=== PATIENT | male | born 1980 | race Caucasian/White ===

== ENCOUNTER 2024-05-18 20:18 | Emergency (ER) | payer BC, SELFPAY ==
[2024-05-18 20:20] VITALS: BP 135/89
[2024-05-18 20:36] LABS: % Basophils 0.6 % (0-2); % Eosinophils 3.7 % (0-6); % Immature Granulocytes 0.6 % (0-0.5); % Monocytes 15.2 % (1.7-9.3); % Neutrophils 54.9 % (42.2-75.2); Absolute Eosinophils 0.2 10^3/uL (0-0.7); Absolute Lymphocytes 1.6 10^3/uL (1.2-3.4); Absolute Neutrophils 3.5 10^3/uL (1.4-6.5); Hematocrit 43.4 % (39.0-52.0); Hemoglobin 15.6 g/dL (13.0-18.0); Mean Corp Hgb Conc. 35.9 g/dL (33.0-37.0); Mean Corpuscular Hgb 30.5 pg (27.0-31.0); Mean Corpuscular Volume 84.9 fL (80.0-94.0); Mean Platelet Volume 10.9 fL (7.4-10.4); Nucleated Red Blood Cells % 0 % (-); Platelet Count 251 10^3/uL (130-400); Red Blood Cell Count 5.11 10^6/uL (4.70-6.10); Red Cell Dist. Width 11.8 % (11.5-14.5); White Blood Cell Count 6.4 10^3/uL (4.8-10.8)
[2024-05-18 20:50] LABS: ALT (SGPT) 50 U/L (0-50); AST (SGOT) 34 U/L (17-59); Albumin 4.7 g/dl (3.5-5.0); Alkaline Phosphatase 48 U/L (38-126); Blood Urea Nitrogen 18 mg/dl (9-20); Calcium 9.8 mg/dl (8.4-10.2); Carbon Dioxide 24 mmol/L (22-30); Chloride 101 mmol/L (98-107); Glucose 120 mg/dl (70-99); Potassium 4.5 mmol/L (3.5-5.1); Sodium 141 mmol/L (135-145); Total Bilirubin 0.5 mg/dl (0.2-1.3); Total Protein 7.4 g/dl (6.3-8.2); eGFR > 60.00
[2024-05-18 20:51] LABS: Lipase 82 U/L (23-300)
--- NOTE | 2024-05-18 22:33 | ED.GENMED ---
History of Present Illness
<GREG Victoria - Last Filed: 05/18/24 23:50>
General
Chief Complaint: Abdominal Pain
Time Seen by Provider: 05/18/24 22:33
History of Present Illness
History of Present Illness:
Patient is a 43 year old male with a PMH of GERD presenting to the ED with complaints of abdominal pain x 3 days. Patient states the pain has been getting worse with time and currently rates it a 7/10. It is relatively constant and described to be a
tight/bloated feeling. Patient states his RUQ hurts the most, and laying down makes the pain worse. Tyelnol did not alleviate symptoms. The pain does not radiate to the back. He admits to associated chest pain and belching. The chest pain is
described as a burning sensation and states it is similar to a reflux feeling. The belching makes the chest pain worse and he belches spontaneously. Patient also admits mild nausea but has not vomited. His bowel movements have been soft and denies
any blood in the stool. He has had an episode like this a few months ago that was similar but resolved. Patient says he also has came down with a cold recently and feels congested and has a mild headache. He denies any palpitations fever vomiting.
Patient has a PMH of GERD that was diagnosed 6 months ago which he has not taken any medication for yet. He denies any alcohol use but admits to using a vape. Denies any history of gallstones or PUD.
<Tanvir Deluna DO - Last Filed: 05/19/24 02:31>
General
Source: patient
Nursing documentation reviewed up to this point in time: agreed with
Review of Systems
<GREG Victoria - Last Filed: 05/18/24 23:50>
Review of Systems
Constitutional: Reports no symptoms
Cardiac: Reports chest pain (burning reflux chest pain )
ABD/GI: Reports abdominal pain and nausea
: Reports no symptoms
Neurological: Reports headache
<Tanvir Deluna DO - Last Filed: 05/19/24 02:31>
Review of Systems
Allergies reviewed?: Yes
Other source history: family ()
All Other Systems: ROS reviewed and negative except as documented in HPI and ROS
EENT: Reports no symptoms
Respiratory: Reports no symptoms
Musculoskeletal: Reports no symptoms
Skin: Reports no symptoms
Endocrine: Reports no symptoms
Hematologic/Lymphatic: Reports no symptoms
Psychiatric: Reports anxiety
Phy Exam
<GREG Victoria - Last Filed: 05/18/24 23:50>
General Physical Exam
General Presentation: well appearing
General age: appears stated age
General Habitus: normal
General Mental: alert
Cardiovascular Exam
Cardiovascular Exam: regular rate/rhythm, no edema, no gallop, no JVD and no murmur
Pulmonary Exam
Pulmonary Exam: lungs clear, no respiratory distress, no rales, chest non tender, no crackles, no rhonchi, no stridor, no wheezing and no cough
Gastrointestinal Exam
Gastrointestinal Exam: normal bowel sounds, soft, no organomegaly, no pulsatile mass, no cva tenderness, distended and tender
Palpation: left upper quadrant: Minimal tenderness, left lower quadrant: Minimal tenderness, right upper quadrant: Moderate tenderness and right lower quadrant: Mild tenderness
Course
<GREG Victoria - Last Filed: 05/18/24 23:50>
Orders/Labs/Results
Orders:
Orders
05/18/24 20:29
Complete Blood Count/With Diff Urgent
Comprehensive Metabolic Panel Urgent
Lipase Urgent
05/18/24 22:58
Electrocardiogram (*1) Urgent
Reason for Study: Abdominal Pain
EKG- Treatment ONCE
05/18/24 23:09
Pantoprazole [Protonix IV] 40 mg IV NOW STA
05/18/24 23:10
Sucralfate Suspension [Carafate Suspension] 1 gm PO NOW STA
05/18/24 23:26
Troponin I Urgent
05/18/24 23:35
Acetaminophen [Tylenol] 650 mg .ROUTE .STK-MED ONE
05/18/24 23:42
Acetaminophen [Tylenol] 650 mg PO NOW STA
05/19/24 00:00
US Abdomen Complete/Upper Urgent
Reason For Exam: RUQ pain
05/19/24 01:33
Morphine Sulfate 4 mg .ROUTE .STK-MED ONE
05/19/24 01:35
Morphine Sulfate 4 mg IV NOW STA
Abnormal Lab Results
05/18/24
20:29
MPV 10.9 H fL
(7.4-10.4)
Absolute Monos (auto) 1.0 H 10^3/uL
(0.1-0.6)
Immature Gran % 0.6 H %
(0-0.5)
Monocytes % 15.2 H %
(1.7-9.3)
Glucose 120 H mg/dl
(70-99)
05/18/24 20:29
05/18/24 20:29
Vital Signs
Initial and Last Documented VS:
Initial Vital Signs
Temp Pulse Resp BP Pulse Ox
98.9 F 100 16 135/89 98
05/18/24 20:20 05/18/24 20:20 05/18/24 20:20 05/18/24 20:20 05/18/24 20:20
Last Documented Vital Signs
Temp Pulse Resp BP Pulse Ox
98.9 F 83 12 128/89 93
05/18/24 20:20 05/19/24 01:30 05/19/24 01:30 05/19/24 01:25 05/19/24 00:44
<Tanvir Deluna, DO - Last Filed: 05/19/24 02:31>
Orders/Labs/Results
Orders:
Orders
05/18/24 20:29
Complete Blood Count/With Diff Urgent
Comprehensive Metabolic Panel Urgent
Lipase Urgent
05/18/24 22:58
Electrocardiogram (*1) Urgent
Reason for Study: Abdominal Pain
EKG- Treatment ONCE
05/18/24 23:09
Pantoprazole [Protonix IV] 40 mg IV NOW STA
05/18/24 23:10
Sucralfate Suspension [Carafate Suspension] 1 gm PO NOW STA
05/18/24 23:26
Troponin I Urgent
05/18/24 23:35
Acetaminophen [Tylenol] 650 mg .ROUTE .STK-MED ONE
05/18/24 23:42
Acetaminophen [Tylenol] 650 mg PO NOW STA
05/19/24 00:00
US Abdomen Complete/Upper Urgent
Reason For Exam: RUQ pain
05/19/24 01:33
Morphine Sulfate 4 mg .ROUTE .STK-MED ONE
05/19/24 01:35
Morphine Sulfate 4 mg IV NOW STA
Abnormal Lab Results
05/18/24
20:29
MPV 10.9 H fL
(7.4-10.4)
Absolute Monos (auto) 1.0 H 10^3/uL
(0.1-0.6)
Immature Gran % 0.6 H %
(0-0.5)
Monocytes % 15.2 H %
(1.7-9.3)
Glucose 120 H mg/dl
(70-99)
05/18/24 20:29
05/18/24 20:29
Vital Signs
Initial and Last Documented VS:
Initial Vital Signs
Temp Pulse Resp BP Pulse Ox
98.9 F 100 16 135/89 98
05/18/24 20:20 05/18/24 20:20 05/18/24 20:20 05/18/24 20:20 05/18/24 20:20
Last Documented Vital Signs
Temp Pulse Resp BP Pulse Ox
98.9 F 83 12 128/89 93
05/18/24 20:20 05/19/24 01:30 05/19/24 01:30 05/19/24 01:25 05/19/24 00:44
<GREG Victoria - Last Filed: 05/18/24 23:50>
MDM/Problems Addressed
Differential Diagnosis Includes:
GERD exacerbation, PUD, gastritis
MDM/Problems Addressed:
blood work is normal, order ekg give PPI for reflux 1150a update ekg is NSR
<Francisco Dudley [facility] - Last Filed: 05/18/24 23:50>
*Critical Care Note
Total Time (30-74mins, 75-104mins- exclusive of procedures): Not Applicable
<Tanvir Deluna DO - Last Filed: 05/19/24 02:31>
Update Note
Update Note:
Ultrasound abdomen complete
IMPRESSION:
Gallbladder is relatively contracted which somewhat with evaluation
Suspecte gallstones in the region of the gallbladder neck
No appreciable gallbladder wall thickening or pericholecystic fluid
Negative sonographic Mcfadden's sign per report
No bile duct dilation
Diffuse increased hepatic echogenicity, suggesting steatosis
Hypoechoic lesions in the left lobe of liver measuring 2.4 x 1.8 �2.3 cm and 2.9 x 2.4 x 2.5 cm in size
Possibly reflecting areas of fatty sparing
Difficult to exclude hepatic masses(incompletely evaluated with this exam)
Consider outpatient MRI for more definitive characterization
Probable focal fatty sparing near the gallbladder fossa
Bilateral kidneys appear normal and are bilaterally symmetric
Normal sized spleen
No appreciable free fluid
05/19/2024 0226 AM I did discuss lab work, and ultrasound findings with patient. Both patient and had several questions. They will follow-up with their family doctor and GI, especially pertaining to the Hypoechoic lesions in the left lobe of
liver, and the gallstones. Discussed return to ER instructions. Patient to be discharged home.
ED Attending Note
<GREG Victoria - Last Filed: 05/18/24 23:50>
-
Portions of this chart may have been created with voice recognition software.� Occasional wrong word or��sound alike� substitutions may have occurred due to the inherent limitations of voice recognition software.
<Tanvir Deluna DO - Last Filed: 05/19/24 02:31>
ED Attending Note
Patient seen and examined by attending physician: Yes
I performed the substantive portion of visit, reviewed & personally made and approve the management plan that is documented in note by myself or RENETTA.: Yes
ED Attending Note:
Pleasant 43-year-old male presents with abdominal pain that is been present for the last 3 days. He states that the pain is exacerbated when lying flat and mostly alleviated when sitting up. Patient has been diagnosed with GERD approximately 6
months ago but states that he has not been taking his medicines as directed. He had a cardiology visit and was due for further heart testing the patient has not been compliant. Patient took Tylenol but he did not get any relief. Patient reports
belching exacerbates his symptoms. Patient does admit to vaping. Patient was seen in conjunction with the PA student. I have reviewed and agree with the history and treatment plan presented. On my independent physical exam, patient is awake,
alert, and oriented x3, minimal acute distress at time of exam. Heart is regular rate rhythm. Lungs are clear to auscultation bilaterally without wheezes rales or rhonchi abdomen is soft without tenderness to palpation in the right upper quadrant
or right lower quadrant.
Discharge Plan
Departure
Patient Disposition: Home (Routine Discharge)
Date of Disposition: 05/19/24
Time of Disposition: :
Patient with high blood pressure during this ER visit?: Yes
Condition: Good
Discharge Problem:
Abdominal pain, Gallstones, Hypodense mass of left lobe of liver
Instructions: Gallstones (DC), Abdominal Pain, BLOOD PRESSURE
Prescriptions:
New
pantoprazole [Protonix] 40 mg tablet,delayed release (DR/EC)
40 mg PO DAILY Qty: 30 0RF
Referrals:
Damien Chahal MD [Active] -
Avril Winters MD [Active] - Call in 1-3 days for appt
Paddy Alaniz MD [Family Provider] -
Activity Restrictions/Additional Instructions:
Your prescriptions were sent electronically to the pharmacy that you specified.
Please follow-up with GI regarding your reflux and the lesions in the left lobe of liver.
Please follow-up with general surgery regarding your right upper quadrant abdominal pain and gallstones
It was a pleasure meeting you and taking part in your care. We hope for your continued healing and wellness.
Please read discharge instructions in their entirety. However, they are for general education and may not describe your exact diagnosis at discharge. Information on your ER visit and medical conditions were discussed with you along with appropriate
follow up information...
If indicated, please take your medications as instructed and indicated on discharge paperwork.
Please schedule a follow up appointment as directed. Call to schedule an appointment
Please return to the emergency department with ANY change in, persisting, or worsening of symptoms. If any of your symptoms do not improve, or persist, or become more severe within 6-12 hours, please return to the emergency department for further
care.
Please return to the emergency department if you develop a headache, neck pain/stiffness, fever greater than 100.4F, chest pain, shortness of breath, persistent nausea, vomiting, slurred speech, difficulty walking, numbness/tingling, weakness, signs
of infection or any other symptoms that are worrisome to you.
If you have any questions or concerns please do not hesitate to call the Hospital at or E-mail me directly at [email or web address]
Interventions
Interventions:
*Risk Screen - Suicide Last Done: 05/19/24 01:13
*General Assessment Last Done: 05/18/24 20:20
*Neglect/Abuse Screening Last Done: 05/19/24 01:13
ED- Fall Risk Assessment Last Done: 05/19/24 01:13
*ED COVID-19 Vaccine History Last Done: 05/19/24 01:13
GM-Krbdwa-Vvvajcduyo Assessment Last Done: 05/18/24 20:19
Discharge Date and Time
Print Language: FAROESE
[2024-05-18 23:19] VITALS: BP 118/87
[2024-05-18] MEDS: CARAFATE SUSPENSION 1 GM PO (23:33)
[2024-05-18] MEDS: PROTONIX IV 40 MG IV (23:33)
[2024-05-18] MEDS: TYLENOL 650 MG PO (23:42)
[2024-05-19] VITALS: BP 112/83
[2024-05-19] LABS: Troponin I < 0.012 ng/ml
[2024-05-19 01:25] VITALS: BP 128/89
[2024-05-19] MEDS: MORPHINE SULFATE 4 MG IV (01:35)
[2024-05-19 02:00] VITALS: BP 120/81
== END 2024-05-19 02:47 | disposition home or self-care (01) ==
LOC: EMR 20:18
PROVIDERS: Emergency Medicine; EMERGENCY PHYSICIAN Student in an Organized Health Care Education/Training Program; FAMILY PHYSICIAN Family Medicine
DX: K80.20 Calculus of gallbladder without cholecystitis without obstruction (principal); R16.0 Hepatomegaly, not elsewhere classified; R10.9 Unspecified abdominal pain; K21.9 Gastro-esophageal reflux disease without esophagitis; R03.0 Elevated blood-pressure reading, without diagnosis of hypertension
CPT/HCPCS: 99285; 96374; 96375; 76700; 80053; 83690; 84484; 85025; 93005

== ENCOUNTER → 2024-06-28 16:53 | Outpatient (REF) | payer BC, SELFPAY | LOC: MRI 3T 16:53 | PROVIDERS: ATTENDING PHYSICIAN Internal Medicine; FAMILY PHYSICIAN Family Medicine | DX: R16.0 Hepatomegaly, not elsewhere classified (principal) | CPT/HCPCS: 74183; A9575 ==

== ENCOUNTER 2024-07-04 06:19 | Day surgery (SDC) | payer BC, SELFPAY ==
[2024-07-04] VITALS (9 sets, daily range): BP systolic 122–140; BP diastolic 77–88; BMI 26.7
[2024-07-04] MEDS: TYLENOL 1000 MG PO (08:45)
[2024-07-04] MEDS: IC GREEN 2.5 MG IV (08:46)
--- NOTE | 2024-07-04 10:24 | OR.RPT ---
Operative Report
Operative Report
Primary Surgeon: Tirso
Assisting: Annabel VALLE
Pre-op Diagnosis: Biliary colic
Post-op Diagnosis: Chronic calculous cholecystitis
Procedure Performed: Robot assisted laparoscopic cholecystectomy
Anesthesia Type: GETA
Specimen / Cultures: Gallbladder
Estimated Blood Loss: 5cc
Complications: None immediate
Operative Findings: Softly distended gallbladder with thickened mildly fibrotic wall
Date of Surgery:� 07/04/24
Indications: This 43M developed biliary colic. Work-up showed gallstones, unremarkable liver enzymes and no ductal dilation. Laparoscopic cholecystectomy with robotic assist was elected.
Description of procedure: The patient was placed on the operating table in the supine position. General anesthesia was induced. A time-out was completed verifying correct patient, procedure, site, positioning, and special equipment prior to
beginning this procedure. An orogastric tube was placed. The abdomen was prepped and draped in the usual sterile fashion. A stab incision was made in left upper quadrant and the Veress needle was inserted. Proper position was confirmed by aspiration
and saline meniscus test. The abdomen was insufflated with carbon dioxide to a pressure of 12mmHg. The patient tolerated insufflation well.
A 8mm trocar was then inserted above the umbilicus. The laparoscope was inserted and the abdomen inspected. No injuries from initial trocar placement or Veress needle insertion were noted. Additional 8mm trocars were then inserted in the following
locations: two in the right lower quadrant and to the left of the umbilicus and just above. The abdomen was inspected and no abnormalities were found. The table was placed in the reverse Trendelenburg position with the right side up. The dome of the
gallbladder was grasped with an atraumatic grasper and retracted over the dome of the liver. The wall was noted to be thickened and mildly fibrotic. The infundibulum was then grasped with an atraumatic grasper and retracted toward the right lower
quadrant. This maneuver exposed Calot�s triangle. The peritoneum overlying the gallbladder infundibulum was then incised and the cystic duct and cystic artery identified and circumferentially dissected so that a clear view of the liver was achieved
through a window between the cystic duct an cystic artery. At this time, the only two structures going into the gallbladder were the cystic artery and cystic duct. The common duct was identified with ICG and protected.
The cystic duct was then doubly clipped and divided. The cystic artery was controlled with bipolar and divided. The gallbladder was then dissected from its peritoneal attachments by electrocautery. The gallbladder was removed using an endoscopic
retrieval bag placed through the umbilical port. The gallbladder was passed off the table as a specimen. The gallbladder fossa was closely inspected. There was no evidence of bleeding from the gallbladder fossa or cystic artery or leakage of the
bile from the cystic duct stump. The umbilical trocar site was closed at the fascial level with 2-0 PDS. Secondary trocars were removed under direct vision and noted to be hemostatic. The abdomen was allowed to collapse. The skin was closed with
subcuticular sutures of 4-0 monocryl and topical skin adhesive. The orogastric tube was removed.
The patient tolerated the procedure well and was taken to the postanesthesia care unit in stable condition.
[2024-07-04] MEDS: DILAUDID 0.5 MG IV (11:09)
== END 2024-07-04 12:12 | disposition home or self-care (01) ==
LOC: SDS 06:19
PROVIDERS: ATTENDING PHYSICIAN Surgery
DX: K80.10 Calculus of gallbladder with chronic cholecystitis without obstruction (principal)
CPT/HCPCS: 47562; 88304